=== PATIENT | female | born 1980 | race Caucasian/White ===

== ENCOUNTER 2016-10-24 08:52 | Emergency (ER) | payer OTHER ==
[2016-10-24] MEDS ORDERED: SODIUM CHLORIDE 0.9% 1,000 ML IV ONE (09:46)
[2016-10-24] MEDS ORDERED: POTASSIUM BICARB 25 MEQ TABLET PO STA (10:32)
[2016-10-24] MEDS ORDERED: DEXAMETHASONE 10 MG/ML VIAL IVP STA (10:35)
[2016-10-24] MEDS ORDERED: DEXAMETHASONE 10 MG/ML VIAL ONE (10:50)
[2016-10-24] MEDS ORDERED: POTASSIUM BICARB 25 MEQ TABLET PO ONE (10:50)
== END 2016-10-24 12:01 | disposition home or self-care (01) ==
DX: A69.20 Lyme disease, unspecified (principal); E86.0 Dehydration; R11.2 Nausea with vomiting, unspecified; M25.562 Pain in left knee; M25.561 Pain in right knee; M06.9 Rheumatoid arthritis, unspecified; M19.90 Unspecified osteoarthritis, unspecified site
CPT/HCPCS: 36415; 80053; 83690; 85025; 85651; 96374; 99283; 99284; A9270

== ENCOUNTER 2016-12-16 12:21 | Outpatient (CLI) | payer OTHER | END 2016-12-16 12:22 | disposition home or self-care (01) | DX: Z01.812 Encounter for preprocedural laboratory examination (principal); N87.9 Dysplasia of cervix uteri, unspecified ==

== ENCOUNTER 2016-12-18 06:13 | Day surgery (SDC) | payer OTHER ==
[2016-12-18] MEDS ORDERED: ceFAZolin 2 GM/50 ML 50 ML IV ONE (06:28)
[2016-12-18] MEDS ORDERED: LACTATED RINGERS 1,000 ML IV ONE ×2 (07:15→08:30)
[2016-12-18] MEDS ORDERED: PROPOFOL 200 MG/20 ML VIAL IVP ONE (08:15)
[2016-12-18] MEDS ORDERED: fentaNYL 100 MCG/2 ML VIAL IVP ONE (08:15)
[2016-12-18] MEDS ORDERED: GLYCOPYRROLATE 1 MG/5 ML VIAL IVP ONE (08:15)
[2016-12-18] MEDS ORDERED: KETOROLAC 30 MG/ML VIAL IVP ONE (08:15)
[2016-12-18] MEDS ORDERED: ACETAMINOPHEN 1,000 MG/100 ML VIAL IV ONE (08:15)
[2016-12-18] MEDS ORDERED: ROCURONIUM 50 MG/5 ML VIAL IVP ONE (08:15)
[2016-12-18] MEDS ORDERED: DEXAMETHASONE 4 MG/ML VIAL IVP ONE (08:15)
[2016-12-18] MEDS ORDERED: LIDOCAINE 2% 10 ML MDV SUBQ ONE (08:15)
[2016-12-18] MEDS ORDERED: SUCCINYLCHOLINE 200 MG/10 ML VIAL IVP ONE (08:15)
[2016-12-18] MEDS ORDERED: NEOSTIGMINE 1 MG/1 ML 10 ML MDV IVP ONE (08:15)
[2016-12-18] MEDS ORDERED: ONDANSETRON 4 MG/2 ML VIAL IVP ONE (08:15)
[2016-12-18] MEDS ORDERED: MIDAZOLAM 2 MG/2 ML VIAL IVP ONE (08:15)
[2016-12-18] MEDS ORDERED: BUPIVACAINE 0.5%-EPI 1:200000 PF 30 ML VIAL SUBQ ONE (08:31)
[2016-12-18] MEDS: fentaNYL 100 MCG/2 ML VIAL ONE ×4 (10:10→10:31)
[2016-12-18] MEDS ORDERED: oxyCODONE 5 MG TABLET ONE ×2 (11:17→15:09)
[2016-12-18] MEDS ORDERED: KETOROLAC 15 MG/ML VIAL ONE (15:08)
== END 2016-12-18 06:14 | disposition home or self-care (01) ==
PROC: 0TJB8ZZ Inspection of Bladder, Via Natural or Artificial Opening Endoscopic (ICD-10-PCS; 2016-12-18)
PROC: 0UT94ZZ Resection of Uterus, Percutaneous Endoscopic Approach (ICD-10-PCS; principal; 2016-12-18 07:30)
PROC: 0UTC4ZZ Resection of Cervix, Percutaneous Endoscopic Approach (ICD-10-PCS; 2016-12-18 07:30)
DX: N87.1 Moderate cervical dysplasia (principal); N72 Inflammatory disease of cervix uteri; N92.0 Excessive and frequent menstruation with regular cycle; E66.9 Obesity, unspecified; F32.9 Major depressive disorder, single episode, unspecified; M35.00 Sjogren syndrome, unspecified; M06.9 Rheumatoid arthritis, unspecified; Z68.37 Body mass index [BMI] 37.0-37.9, adult; Z80.3 Family history of malignant neoplasm of breast; Z90.49 Acquired absence of other specified parts of digestive tract; D25.1 Intramural leiomyoma of uterus; Z90.722 Acquired absence of ovaries, bilateral; Z90.79 Acquired absence of other genital organ(s); Z98.84 Bariatric surgery status; Z98.0 Intestinal bypass and anastomosis status; Z88.5 Allergy status to narcotic agent; F41.9 Anxiety disorder, unspecified
CPT/HCPCS: 52000; 58572; 86850; 86900; 86901; A9270; J0131; J0690; J7120

== ENCOUNTER 2017-08-05 18:10 | Emergency (ER) | payer OTHER ==
[2017-08-05 18:55] LABS: BILIRUBIN,URINE NEGATIVE (NEGATIVE)
[2017-08-05 19:00] LABS: UA w/ MICROSCOPIC CHARGE YES
[2017-08-05 19:01] LABS: HCG UR QUAL NEGATIVE
[2017-08-05 19:11] LABS: UR CULTURE IF IND NOT INDICATED
[2017-08-05] MEDS ORDERED: SODIUM CHLORIDE 0.9% 1,000 ML IV ONE (19:29)
[2017-08-05] MEDS ORDERED: HYDROmorphone 0.5 MG/0.5 ML SYRINGE IVP STA ×2 (19:29→20:20)
[2017-08-05] MEDS ORDERED: ONDANSETRON 4 MG/2 ML VIAL IVP STA (19:29)
--- NOTE | 2017-08-05 19:31 | ED Physician Documentation ---
PD HPI ABD PAIN - Stated complaint Stated Complaint: R SIDE PX - Chief complaint Chief Complaint: Abd Pain - History obtained from History obtained from: Patient - History of Present Illness Timing - onset: Other (36-year-old woman with history of gastric bypass and cholecystectomy who developed sudden onset right flank pain reminiscent of prior recurrent calcium oxalate renal colic at 3 PM today with nausea but no vomiting. She seems to have urinary hesitancy but no obvious hematuria. She has never needed any of her kidney stones intervened upon.) Review of Systems Constitutional: reports: Reviewed and negative Cardiac: reports: Reviewed and negative Respiratory: reports: Reviewed and negative GI: reports: Nausea. 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, Tubal ligation, Other HEENT: Tonsil/Adenoidectomy, Other - Present Medications Home Medications: Ambulatory Orders Medication Instructions Recorded Confirmed Sumatriptan Succinate [Imitrex] 50 mg PO DAILY PRN 06/23/14 08/05/17 Zolpidem Tartrate [Ambien] 10 mg PO QPM 06/05/15 08/05/17 Biotin 1 tab PO DAILY 12/16/16 08/05/17 Calcium Carbonate [Calcium] 1 tab PO DAILY 12/16/16 08/05/17 Cholecalciferol (Vitamin D3) 1 cap PO DAILY 12/16/16 08/05/17 [Vitamin D3] Folic Acid 1 mg PO DAILY 12/16/16 08/05/17 Multivitamin [Multiple Vitamins] 1 tab PO DAILY 12/16/16 12/16/16 Acetaminophen [Tylenol] 1,000 mg PO Q6H PRN 12/18/16 08/05/17 Ondansetron HCl [Zofran] 4 mg PO Q6H PRN #10 tablet 08/05/17 Oxycodone HCl/Acetaminophen 1 - 2 tab PO Q4H PRN #15 tablet 08/05/17 [Percocet 5-325 mg Tablet] Venlafaxine ER [Effexor ER] 75 mg PO DAILY 08/05/17 08/05/17 - Allergies Allergies/Adverse Reactions: Allergies Allergy/AdvReac Type Severity Reaction Status Date / Time morphine AdvReac Unknown Verified 08/05/17 19:21 - Social History Does the pt smoke?: No Smoking Status: Never smoker Does the pt drink ETOH?: No Does the pt have substance abuse?: No - Immunizations Immunizations are current?: Yes - POLST Patient has POLST: No PD ED PE NORMAL - Vitals Vital signs reviewed: Yes - General General: Alert and oriented X 3, No acute distress - Abdomen Abdomen: Soft, Non tender - Back Back: No CVA TTP, No spinal TTP - Extremities Extremities: No edema, No calf tenderness / cord - Neuro Neuro: Alert and oriented X 3, Normal speech Results - Vitals Vitals: Vital Signs - 24 hr 08/05/17 08/05/17 08/05/17 18:16 20:19 20:35 Temperature 36.7 C Heart Rate 82 76 79 Respiratory 18 16 14 Rate Blood Pressure 105/71 105/58 L 101/51 L O2 Saturation 100 100 99 Oxygen O2 Source Room air - Labs Labs: Laboratory Tests 08/05/17 08/05/17 08/05/17 18:43 19:35 19:35 WBC 12.6 H RBC 4.39 Hgb 12.6 Hct 38.2 MCV 87.2 MCH 28.8 MCHC 33.0 RDW 13.1 Plt Count 313 MPV 7.9 Neut # 6.6 Lymph # 4.7 [place] # 0.8 Eos # 0.4 Baso # 0.1 Absolute Nucleated RBC 0.00 Nucleated RBC % 0.0 Sodium 140 Potassium 4.1 Chloride 106 Carbon Dioxide 28 Anion Gap 6.0 BUN 18 Creatinine 0.7 Estimated GFR (MDRD) 95 Glucose 92 Calcium 9.3 Total Bilirubin 0.4 AST 29 ALT 30 Alkaline Phosphatase 71 Total Protein 6.8 Albumin 4.1 Globulin 2.7 Albumin/Globulin Ratio 1.5 Lipase 27 Urine Color YELLOW Urine Clarity CLEAR Urine pH 6.0 Ur Specific [place] 1.010 Urine Protein NEGATIVE Urine Glucose (UA) NEGATIVE Urine Ketones NEGATIVE Urine Occult Blood MODERATE H Urine Nitrite NEGATIVE Urine Bilirubin NEGATIVE Urine Urobilinogen 0.2 (NORMAL) Ur Leukocyte Esterase MODERATE H Urine RBC 0-5 Urine WBC 4-5 Ur Squamous Epith Cells MANY Squamous H Urine Bacteria Few Ur Microscopic Review INDICATED Urine Culture Comments NOT INDICATED Urine HCG, Qual NEGATIVE - Rads (name of study) Right retroperitoneal ultrasound Radiology: Prelim report reviewed (normal) PD MEDICAL DECISION MAKING - ED course ED course: 36-year-old woman with history of renal colic presents with stone like pain. Administered 2 doses of Dilaudid with relief. No evidence of hydronephrosis on ultrasound. CT saved because of frequent imaging in the past. Departure - Departure Disposition: 01 Home, Self Care Clinical Impression: Renal colic Condition: Good Record reviewed to determine appropriate education?: Yes Instructions: ED Stone Renal W Colic Prescriptions: Ondansetron HCl [Zofran] 4 mg PO Q6H PRN #10 tablet PRN Reason: Nausea / Vomiting Oxycodone HCl/Acetaminophen [Percocet 5-325 mg Tablet] 1 - 2 tab PO Q4H PRN #15 tablet PRN Reason: Pain Comments: Call your doctor to arrange a follow-up appointment, make the next available appointment. In the interim, return anytime if worse or if new symptoms develop. Do not drink or drive while taking narcotic pain medication. Note that many narcotic pain relievers also contain Tylenol/acetaminophen. Please ensure that your total dose of acetaminophen from all sources does not exceed 3 g (3000 mg) per day. You may get constipated while on this medication. Take a stool softener such as Colace twice a day while you are on it. Also add an glkc-vhn-[id number] laxative such as senna or MiraLAX on any day that you do not have a bowel movement. If you received a narcotic pain medication or sedative while in the emergency department, do not drive for the next 24 hours.
[2017-08-05 19:41] LABS: BASOPHILS # (AUTO) 0.1 10^3/uL (0.0-0.1); BASOPHILS % (AUTO) 0.8 %; EOSINOPHILS # (AUTO) 0.4 10^3/uL (0.0-0.7); EOSINOPHILS % (AUTO) 3.3 %; HCT - HEMATOCRIT 38.2 % (37.0-47.0); HGB - HEMOGLOBIN 12.6 g/dL (12.0-16.0); LYMPHOCYTES # (AUTO) 4.7 10^3/uL (1.5-3.5); LYMPHOCYTES % (AUTO) 37.2 %; MEAN CORPUSCULAR HEMOGLOBIN 28.8 pg (27.0-31.0); MEAN CORPUSCULAR VOLUME 87.2 fL (81.0-99.0); MEAN PLATELET VOLUME 7.9 fL (7.9-10.8); MONOCYTES # (AUTO) 0.8 10^3/uL (0.0-1.0); NEUTROPHILS # (AUTO) 6.6 10^3/uL (1.5-6.6); NEUTROPHILS % (AUTO) 52.7 %; RED BLOOD COUNT 4.39 10^6/uL (4.20-5.40); RED CELL DISTRIBUTION WIDTH 13.1 % (12.0-15.0); UNCORRECTED WHITE BLOOD COUNT 12.6 x10^3/uL; WHITE BLOOD COUNT 12.6 x10^3/uL (4.8-10.8)
[2017-08-05] MEDS ORDERED: HYDROmorphone 1 MG/ML SYRINGE ONE ×2 (19:42→20:29)
[2017-08-05] MEDS ORDERED: ONDANSETRON 4 MG/2 ML VIAL ONE (19:42)
[2017-08-05 19:54] LABS: ALBUMIN/GLOBULIN RATIO 1.5 (1.0-2.2); BILIRUBIN,TOTAL 0.4 mg/dL (0.2-1.0); CALCIUM 9.3 mg/dL (8.5-10.3); CREATININE 0.7 mg/dL (0.4-1.0); POTASSIUM 4.1 mmol/L (3.5-5.0); TOTAL PROTEIN 6.8 g/dL (6.7-8.2)
[2017-08-05 20:37] VITALS: BP 101/51
--- NOTE | 2017-08-05 20:39 | Ultrasound Preliminary Report ---
Exam: US RETROPERITONEAL LIMITED IMPRESSION: Normal right kidney. [facility] SITE ID: [id number]
--- NOTE | 2017-08-05 20:42 | Ultrasound Report ---
EXAM: RENAL ULTRASOUND, LIMITED EXAM DATE: 08/05/2017 07:54 PM. CLINICAL HISTORY: R flank pain. COMPARISON: CT [facility] dated 03/15/2016. TECHNIQUE: Real-time scanning was performed with static images obtained. FINDINGS: Right Kidney: 11.3 x 5.0 x 5.0 cm. Normal echotexture with no stones, contour-deforming masses, or hy dronephrosis. Other: None. IMPRESSION: Normal right kidney. [facility] Referring Provider Line: [phone] SITE ID: [id number]
[2017-08-05] MEDS ORDERED: oxyCODONE/ACET 5/325 Prepack 4 PO STA (20:55)
[2017-08-05] MEDS ORDERED: ONDANSETRON ODT 4 MG Prepack 2 TL STA (20:55)
[2017-08-05] MEDS ORDERED: ONDANSETRON ODT 4 MG Prepack 2 TL ONE (21:02)
[2017-08-05] MEDS ORDERED: oxyCODONE/ACET 5/325 Prepack 4 PO ONE (21:02)
== END 2017-08-05 21:01 | disposition home or self-care (01) ==
LOC: ED 18:10
DX: N23 Unspecified renal colic (principal); Z98.84 Bariatric surgery status
CPT/HCPCS: 36415; 76775; 80053; 81001; 81025; 83690; 85025; 96361; 96374; 96375; 96376; 99284; J1170; 81003; 87086

== ENCOUNTER 2017-11-03 10:14 | Emergency (ER) | payer OTHER ==
[2017-11-03] MEDS ORDERED: SODIUM CHLORIDE 0.9% 1,000 ML IV ONE (12:32)
[2017-11-03] MEDS ORDERED: METOCLOPRAMIDE 10 MG/2 ML VIAL IVP STA (12:32)
[2017-11-03] MEDS ORDERED: KETOROLAC 60 MG/2 ML VIAL IVP STA (12:32)
[2017-11-03] MEDS ORDERED: diazePAM INJ 5 MG/ML SYRINGE IVP STA (12:32)
--- NOTE | 2017-11-03 12:34 | ED Physician Documentation ---
History of Present Illness - Stated complaint Stated Complaint: BACK/NECK PX/MIGRAINE - Chief complaint Chief Complaint: Back Pain - History obtained from History obtained from: Patient - History of Present Illness Timing: Other (36-year-old woman with history of gastric bypass surgery, migraine headaches, hysterectomy. She developed back pain about 4 days ago which is not uncommon for her but it was worse and more diffuse than normal and over the last day has radiated up into the neck and given her headache with nausea and light sensitivity similar to prior migraines. 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, Tubal ligation, Hysterectomy, Other HEENT: Tonsil/Adenoidectomy, Other - Present Medications Home Medications: Ambulatory Orders Medication Instructions Recorded Confirmed Sumatriptan Succinate [Imitrex] 50 mg PO DAILY PRN 06/23/14 11/03/17 Zolpidem Tartrate [Ambien] 10 mg PO QPM 06/05/15 11/03/17 Biotin 1 tab PO DAILY 12/16/16 11/03/17 Calcium Carbonate [Calcium] 1 tab PO DAILY 12/16/16 11/03/17 Cholecalciferol (Vitamin D3) 1 cap PO DAILY 12/16/16 11/03/17 [Vitamin D3] Folic Acid 1 mg PO DAILY 12/16/16 11/03/17 Multivitamin [Multiple Vitamins] 1 tab PO DAILY 12/16/16 11/03/17 Acetaminophen [Tylenol] 1,000 mg PO Q6H PRN 12/18/16 11/03/17 Venlafaxine ER [Effexor ER] 75 mg PO DAILY 08/05/17 11/03/17 HYDROcod/ACETAM 5/325 [[place] 5/325] 1 - 2 ea PO Q6H PRN #10 tablet 11/03/17 buPROPion [Wellbutrin Xl] 150 mg PO DAILY 11/03/17 11/03/17 - Allergies Allergies/Adverse Reactions: Allergies Allergy/AdvReac Type Severity Reaction Status Date / Time morphine AdvReac Unknown Verified 11/03/17 11:38 - Social History Does the pt smoke?: No Smoking Status: Never smoker Does the pt drink ETOH?: No Does the pt have substance abuse?: No - Immunizations Immunizations are current?: Yes - POLST Patient has POLST: No PD ED PE NORMAL - Vitals Vital signs reviewed: Yes - General General: Alert and oriented X 3, Other (Photophobic) - HEENT HEENT: PERRL, EOMI - Neck Neck: Other (Her neck is stiff, but not in a meningitic pattern, she has muscular tenderness of both sternocleidomastoids.) - Cardiac Cardiac: RRR, No murmur - Respiratory Respiratory: No respiratory distress, Clear bilaterally - Abdomen Abdomen: Non tender - Back Back: Other (Palpable spasm which is tender of the parathoracic muscles bilaterally which reproduces her pain.) - Extremities Extremities: No edema, No calf tenderness / cord - Neuro Neuro: Alert and oriented X 3, Normal speech Results - Vitals Vitals: Vital Signs - 24 hr 11/03/17 11/03/17 11/03/17 10:20 11:24 12:38 Temperature 36.9 C 36.6 C Heart Rate 91 74 70 Respiratory 14 16 16 Rate Blood Pressure 136/90 H 108/66 121/68 O2 Saturation 98 99 100 11/03/17 13:29 Temperature Heart Rate 93 Respiratory 15 Rate Blood Pressure 109/67 O2 Saturation 100 Oxygen O2 Source Room air PD MEDICAL DECISION MAKING - ED course ED course: She presents with a tension headache related to back pain, really inconsistent with a vascular or other serious etiology. After treatment with IV fluids, Toradol, Reglan she was doing much better and requested discharge. Departure - Departure Disposition: 01 Home, Self Care Clinical Impression: Headache Qualifiers: Headache type: tension-type Headache chronicity pattern: acute headache Intractability: not intractable Qualified Code(s): G44.209 - Tension-type headache, unspecified, not intractable Back pain Qualifiers: Back pain location: thoracic back pain Chronicity: acute Back pain laterality: bilateral Qualified Code(s): M54.6 - Pain in thoracic spine Condition: Good Record reviewed to determine appropriate education?: Yes Instructions: ED Headache Migraine Prescriptions: HYDROcod/ACETAM 5/325 [[place] 5/325] 1 - 2 ea PO Q6H PRN #10 tablet PRN Reason: Pain Comments: Call your doctor to arrange a follow-up appointment, make the next available appointment. In the interim, return anytime if worse or if new symptoms develop.
[2017-11-03 13:30] VITALS: BP 109/67
== END 2017-11-03 14:13 | disposition home or self-care (01) ==
LOC: ED 10:14
DX: G44.209 Tension-type headache, unspecified, not intractable (principal); M54.6 Pain in thoracic spine; Z98.84 Bariatric surgery status
CPT/HCPCS: 96374; 99283

== ENCOUNTER 2018-11-10 12:49 | Emergency (ER) | payer OTHER ==
[2018-11-10 14:44] LABS: BASOPHILS # (AUTO) 0.1 10^3/uL (0.0-0.1); BASOPHILS % (AUTO) 0.8 %; EOSINOPHILS # (AUTO) 0.3 10^3/uL (0.0-0.7); EOSINOPHILS % (AUTO) 2.4 %; LYMPHOCYTES # (AUTO) 3.4 10^3/uL (1.5-3.5); LYMPHOCYTES % (AUTO) 26.2 %; MEAN CORPUSCULAR HEMOGLOBIN 29.3 pg (27.0-31.0); MEAN CORPUSCULAR HGB CONC 33.9 g/dL (32.0-36.0); MEAN CORPUSCULAR VOLUME 86.3 fL (81.0-99.0); MEAN PLATELET VOLUME 7.5 fL (7.9-10.8); MONOCYTES # (AUTO) 0.7 10^3/uL (0.0-1.0); MONOCYTES % (AUTO) 5.5 %; NEUTROPHILS # (AUTO) 8.5 10^3/uL (1.5-6.6); NEUTROPHILS % (AUTO) 65.1 %; PLT - PLATELET COUNT 390 10^3/uL (130-450); RED BLOOD COUNT 4.77 10^6/uL (4.20-5.40)
[2018-11-10 14:57] LABS: ALBUMIN/GLOBULIN RATIO 1.2 (1.0-2.2); BILIRUBIN,TOTAL 0.5 mg/dL (0.2-1.0); CALCIUM 9.4 mg/dL (8.5-10.3); CREATININE 0.7 mg/dL (0.4-1.0); TOTAL PROTEIN 7.4 g/dL (6.7-8.2)
[2018-11-10] MEDS ORDERED: LIDOCAINE VISCOUS 2% 15 ML UDC MM STA (15:08)
[2018-11-10] MEDS ORDERED: MAG HYDROX/AL HYDROX/SIMETH 30 ML UDC PO STA (15:09)
--- NOTE | 2018-11-10 15:11 | ED Physician Documentation ---
PD HPI ABD PAIN - Stated complaint Stated Complaint: ABD PX - Chief complaint Chief Complaint: Abd Pain - History obtained from History obtained from: Patient, Family - History of Present Illness Timing - onset: How many days ago (3) Timing - duration: Days (3) Timing - details: Abrupt onset, Still present Quality: Sharp, Pain Location: Epigastric Improved by: Laying still Worsened by: Eating, Moving, Position, Palpation Associated symptoms: Nausea. No: Vomiting, Hematemesis, Diarrhea, Constipation, Melena Similar symptoms before: No diagnosis Recently seen: Not recently seen - Additional information Additional information: 37-year-old female sitting in her couch when she developed epigastric pain after drinking some water. She has history of gastric bypass about 3 years ago and she has not had any significant complication with this. She has had her gallbladder out she has had her appendix out and she denies overeating. Review of Systems Constitutional: denies: Fever, Chills Eyes: denies: Decreased vision Ears: denies: Ear pain Nose: denies: Congestion Throat: denies: Sore throat Cardiac: denies: Chest pain / pressure, Palpitations Respiratory: denies: Dyspnea, Cough GI: reports: Abdominal Pain, Nausea. 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, Tubal 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, Hysterectomy, Other HEENT: Tonsil/Adenoidectomy, Other - Present Medications Home Medications: Ambulatory Orders Medication Instructions Recorded Confirmed Zolpidem Tartrate [Ambien] 10 mg PO QPM 06/05/15 11/10/18 Biotin 1 tab PO DAILY 12/16/16 11/10/18 Calcium Carbonate [Calcium] 1 tab PO DAILY 12/16/16 11/10/18 Cholecalciferol (Vitamin D3) 1 cap PO DAILY 12/16/16 11/10/18 [Vitamin D3] Folic Acid 1 mg PO DAILY 12/16/16 11/10/18 Multivitamin [Multiple Vitamins] 1 tab PO DAILY 12/16/16 11/10/18 Acetaminophen [Tylenol] 1,000 mg PO Q6H PRN 12/18/16 11/10/18 Venlafaxine ER [Effexor ER] 75 mg PO DAILY 08/05/17 11/10/18 buPROPion [Wellbutrin Xl] 150 mg PO DAILY 11/03/17 11/10/18 Eletriptan HBr [Relpax] PRN 11/10/18 Sucralfate [Carafate] 1 gm PO ACHS #40 tablet 11/10/18 Zonisamide 25 mg PO TID 11/10/18 11/10/18 - Allergies Allergies/Adverse Reactions: Allergies Allergy/AdvReac Type Severity Reaction Status Date / Time morphine AdvReac Unknown Verified 11/10/18 13:21 - Social History Does the pt smoke?: No Smoking Status: Never smoker Does the pt drink ETOH?: No Does the pt have substance abuse?: No - Immunizations Immunizations are current?: Yes - POLST Patient has POLST: No PD ED PE NORMAL - Vitals Vital signs reviewed: Yes (normal) - General General: Alert and oriented X 3, No acute distress, Well developed/nourished - HEENT HEENT: Atraumatic, PERRL, EOMI - Neck Neck: Supple, no meningeal sign, No bony TTP - Cardiac Cardiac: RRR, No murmur - Respiratory Respiratory: No respiratory distress, Clear bilaterally - Abdomen Abdomen: Soft, Other (epigastric tenderness is obvious and associated with some garding. 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, No motor deficit, No sensory deficit, Normal speech Eye Opening: Spontaneous Motor: Obeys Commands Verbal: Oriented GCS Score: 15 - Psych Psych: Normal mood, Normal affect Results - Vitals Vitals: Vital Signs - 24 hr 11/10/18 11/10/18 13:19 15:47 Temperature 36.5 C Heart Rate 89 79 Respiratory 16 18 Rate Blood Pressure 118/75 108/69 O2 Saturation 98 100 Oxygen O2 Source Room air - Labs Labs: Laboratory Tests 11/10/18 11/10/18 11/10/18 14:40 14:40 15:17 WBC 13.0 H RBC 4.77 Hgb 14.0 Hct 41.1 MCV 86.3 MCH 29.3 MCHC 33.9 RDW 13.0 Plt Count 390 MPV 7.5 L Neut # (Auto) 8.5 H Lymph # (Auto) 3.4 [place] # (Auto) 0.7 Eos # (Auto) 0.3 Baso # (Auto) 0.1 Absolute Nucleated RBC 0.00 Nucleated RBC % 0.0 Sodium 138 Potassium 3.9 Chloride 103 Carbon Dioxide 27 Anion Gap 8.0 BUN 13 Creatinine 0.7 Estimated GFR (MDRD) 95 Glucose 97 Calcium 9.4 Total Bilirubin 0.5 AST 19 ALT 20 Alkaline Phosphatase 82 Total Protein 7.4 Albumin 4.0 Globulin 3.4 Albumin/Globulin Ratio 1.2 Lipase 30 Urine Color YELLOW Urine Clarity CLEAR Urine pH 5.5 Ur Specific [place] >=1.030 H Urine Protein NEGATIVE Urine Glucose (UA) NEGATIVE Urine Ketones NEGATIVE Urine Occult Blood NEGATIVE Urine Nitrite NEGATIVE Urine Bilirubin NEGATIVE Urine Urobilinogen 0.2 (NORMAL) Ur Leukocyte Esterase NEGATIVE Ur Microscopic Review NOT INDICATED Urine Culture Comments NOT INDICATED Urine HCG, Qual 11/10/18 15:17 WBC RBC Hgb Hct MCV MCH MCHC RDW Plt Count MPV Neut # (Auto) Lymph # (Auto) [place] # (Auto) Eos # (Auto) Baso # (Auto) Absolute Nucleated RBC Nucleated RBC % Sodium Potassium Chloride Carbon Dioxide Anion Gap BUN Creatinine Estimated GFR (MDRD) Glucose Calcium Total Bilirubin AST ALT Alkaline Phosphatase Total Protein Albumin Globulin Albumin/Globulin Ratio Lipase Urine Color Urine Clarity Urine pH Ur Specific [place] >=1.030 H Urine Protein Urine Glucose (UA) Urine Ketones Urine Occult Blood Urine Nitrite Urine Bilirubin Urine Urobilinogen Ur Leukocyte Esterase Ur Microscopic Review Urine Culture Comments Urine HCG, Qual NEGATIVE Procedures - IVC sono (time) 1540 Bedside IVC sono: IVC measures (cm) (0.87), IVC collapsed c insp (cm) (complete), Dehydration (est 2 liter deficit) PD MEDICAL DECISION MAKING - ED course Complexity details: reviewed old records, reviewed results, re-evaluated patient, considered differential, d/w patient, d/w family ED course: 37-year-old female 3 years status post gastric bypass has developed abdominal pain and has not been able to hold down fluids for the past 3 days. She is administered viscous lidocaine Mylanta with temporary relief of her pain. She is administered intravenous saline Protonix and Carafate. Departure - Departure Disposition: 01 Home, Self Care Clinical Impression: Dehydration Gastritis Qualifiers: Gastritis type: unspecified gastritis Chronicity: acute Gastritis bleeding: without bleeding Qualified Code(s): K29.00 - Acute gastritis without bleeding Condition: Stable Instructions: ED Dehydration, ED PUD Vs Gastritis Follow-Up: JAIME Henderson [Provider Group] Prescriptions: Sucralfate [Carafate] 1 gm PO ACHS #40 tablet Comments: Today it appears the pain you are having her abdomen is from your stomach or duodenum and my recommendation is you begin some medication to reduce the acid in your stomach and you take the Carafate as prescribed before meals and at bedtime.
[2018-11-10 15:31] LABS: BILIRUBIN,URINE NEGATIVE (NEGATIVE); GLUCOSE, URINE (UA) NEGATIVE (NEGATIVE); KETONES,URINE (UA) NEGATIVE (NEGATIVE); LEUKOCYTE ESTERASE, URINE NEGATIVE (NEGATIVE); NITRITE,URINE NEGATIVE (NEGATIVE); OCCULT BLOOD,URINE NEGATIVE (NEGATIVE); PH,URINE 5.5 PH (5.0-7.5); PROTEIN,URINE NEGATIVE (NEGATIVE); UROBILINOGEN,URINE 0.2 (NORMAL) E.U./dL (NORMAL)
[2018-11-10 15:34] LABS: CLARITY,URINE CLEAR (CLEAR)
[2018-11-10 15:35] LABS: HCG UR QUAL NEGATIVE
[2018-11-10] MEDS ORDERED: SODIUM CHLORIDE 0.9% 1,000 ML IV ONE ×2 (15:45→16:31)
[2018-11-10 15:47] VITALS: BP 108/69
[2018-11-10] MEDS ORDERED: PANTOPRAZOLE 40 MG VIAL IVP STA (15:47)
[2018-11-10] MEDS ORDERED: SUCRALFATE 1 GM/10 ML UDC PO STA (15:47)
== END 2018-11-10 17:50 | disposition home or self-care (01) ==
LOC: ED 12:49
DX: K29.00 Acute gastritis without bleeding (principal); E86.0 Dehydration; Z98.84 Bariatric surgery status
CPT/HCPCS: 36415; 80053; 81003; 81025; 83690; 85025; 96361; 96374; 99283; A9270; 81001; 87086

== ENCOUNTER 2019-12-31 16:34 | Outpatient (CLI) | payer OTHER | END 2019-12-31 16:35 | disposition home or self-care (01) | LOC: COV 16:34 | PROVIDERS: ATTEND Family Medicine | DX: R05 Cough (principal); R50.9 Fever, unspecified | CPT/HCPCS: 81599 ==

== ENCOUNTER 2021-02-16 14:54 | Emergency (ER) | payer OTHER ==
--- OUTSIDE RECORDS SUMMARY | 2021-02-16 14:57 | EXTERNAL MEDICAL SUMMARY RPT | Continuity of Care Document ---
:1980 Demographics Phone Unavailable Preferred Language Mosotho Marital Status Unknown Mosque Affiliation Unknown Race Unknown Ethnic Group Unknown Author Organization [place] Address [address] [phone] Phone Care Team Providers Name Role Phone Bambi Montez Unavailable Unavailable Medications date description facility 20210101 24 HR venlafaxine 75 MG Extended Releas e Capsule [facility] 20201122 Aspirin 81 MG Enteric Coated Tablet Is [facility] Procedures date description facility 20201122 [facility] Vital Signs date measurement value source 20201122 weight_standard 86.18 lb [id number] weight_metric 39.09 kg 20201122 temperature_standard 98.6 F 20201122 temperature_metric 37 C [id number] respiration_rate 15 /min [id number] height_standard 64 in 20201122 height_metric 162.56 cm [id number] heart_rate 82 /min 20201122 BP_systolic 137 mm[Hg] 82701591 BP_diastolic 81 mm[Hg] 26133977 BMI 32.5 kg/m2
--- OUTSIDE RECORDS SUMMARY | 2021-02-16 15:05 | EXTERNAL MEDICAL SUMMARY RPT | Continuity of Care Document ---
:1980 Demographics Phone Unavailable Preferred Language [place] Marital Status Unknown Adventism Affiliation Unknown Race Unknown Ethnic Group Unknown Author Organization [place] Address [address] [phone] Phone Care Team Providers Name Role Phone Tc Unavailable Unavailable Medications date description facility 20210101 24 HR venlafaxine 75 MG Extended Releas e Capsule [facility] 20201122 Aspirin 81 MG Enteric Coated Tablet Is [facility] Procedures date description facility 20201122 General [facility] [place] Vital Signs date measurement value source 20201122 weight_standard 86.18 lb [id number] weight_metric 39.09 kg 20201122 temperature_standard 98.6 F [id number] temperature_metric 37 C [id number] respiration_rate 15 /min [id number] height_standard 64 in 81997496 height_metric 162.56 cm 49775526 heart_rate 82 /min 59007478 BP_systolic 137 mm[Hg] 54329074 BP_diastolic 81 mm[Hg] 93894460 BMI 32.5 kg/m2
[2021-02-16 15:14] VITALS: BP 129/86
--- NOTE | 2021-02-16 15:43 | ED Physician Documentation ---
History of Present Illness - Stated complaint Stated Complaint: LT LEG PX/SWELLING - Chief complaint Chief Complaint: Ext Problem - Additonal information Additional information: 40-year-old female presents the emergency department for evaluation of left leg swelling that she feels is new compared to baseline. 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 Currently on Eliquis 5 mg twice daily. Reports compliance. Due to recurrent DVT in the left leg she was with an IVC filter however that was removed a few years ago. Patient denies chest pain or shortness of air. Denies that she has ever received pulmonary embolus associated with her leg blood clots. Patient's office clerk is Dr. Allen through [facility]. Patient had similar symptoms in November 2020. She was seen at [facility] and has ultrasound results with her that show a partially occlusive thrombus that was seen in the left common femoral vein. Review of Systems Constitutional: denies: Fever, Chills Eyes: reports: Reviewed and negative Ears: reports: Reviewed and negative Nose: reports: Rhinorrhea / runny nose Throat: reports: Reviewed and negative Cardiac: reports: Other (left groin pain). 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, Tubal ligation, Hysterectomy, Other HEENT: Tonsil/Adenoidectomy, Other - Present Medications Home Medications: Ambulatory Orders Medication Instructions Recorded Confirmed Zolpidem Tartrate [Ambien] 10 mg PO QPM 06/05/15 02/16/21 Cholecalciferol (Vitamin D3) 1 cap PO DAILY 12/16/16 02/16/21 [Vitamin D3] Multivitamin [Multiple Vitamins] 1 tab PO DAILY 12/16/16 02/16/21 Acetaminophen [Tylenol] 1,000 mg PO Q6H PRN 12/18/16 02/16/21 Venlafaxine ER [Effexor ER] 75 mg PO DAILY 08/05/17 02/16/21 Eletriptan HBr [Relpax] 1 tab PO DAILY PRN 11/10/18 02/16/21 Zonisamide 25 mg PO TID 11/10/18 02/16/21 Enoxaparin [Lovenox] 100 mg SQ BID 30 Days #60 02/16/21 HYDROcod/ACETAM 5/325 [[place] 5/325] 1 tab PO BID PRN #10 tablet 02/16/21 - Allergies Allergies/Adverse Reactions: Allergies Allergy/AdvReac Type Severity Reaction Status Date / Time morphine AdvReac Unknown Verified 02/16/21 15:10 - Social History Does the pt smoke?: No Smoking Status: Never smoker Does the pt drink ETOH?: No Does the pt have substance abuse?: No - Immunizations Immunizations are current?: Yes - POLST Patient has POLST: No PD ED PE EXPANDED - General General: Alert, No acute distress, Well developed/nourished - HEENT HEENT: PERRL - Cardiac Cardiac: Regular Rate, Radial strong equal, Pedal strong equal, Cap refill < 2 sec - Respiratory Respiratory: Clear to ausultation elvia. No: Distress, Labored - Abdomen Abdomen: Normal Bowel sounds. No: Tender to palpation - Extremities Extremities: Normal, Pedal Pulses Present. No: Deformity, Tenderness, Limited ROM, Right calf TTP/cord, Left calf TTP/cord (No swelling of the left lower extremity noted. Distal perfusion and pulses present. Patient reports tightness in the left groin. No swelling noted there. 2+ femoral arterial pulse. Full range of motion of the left leg through the hip.) Results - Vitals Vitals: Vital Signs - 24 hr 02/16/21 02/16/21 15:10 16:10 Temperature 36.8 C 36.3 C L Heart Rate 100 87 Respiratory 16 16 Rate Blood Pressure 129/86 H 129/86 H O2 Saturation 100 100 Oxygen O2 Source Room air - Labs Labs: Laboratory Tests 02/16/21 02/16/21 15:51 15:51 WBC 13.0 H RBC 4.73 Hgb 12.1 Hct 37.5 MCV 79.3 L MCH 25.6 L MCHC 32.3 RDW 14.7 Plt Count 389 MPV 9.5 Neut # (Auto) 7.4 H Lymph # (Auto) 4.2 H [place] # (Auto) 1.0 Eos # (Auto) 0.3 Baso # (Auto) 0.1 Absolute Nucleated RBC 0.00 Nucleated RBC % 0.0 Sodium 137 Potassium 3.5 Chloride 103 Carbon Dioxide 25 Anion Gap 9.0 BUN 12 Creatinine 0.7 Estimated GFR (MDRD) 93 Glucose 98 Calcium 9.1 Total Bilirubin 0.5 AST 14 ALT 11 Alkaline Phosphatase 82 Total Protein 6.7 Albumin 4.2 Globulin 2.5 Albumin/Globulin Ratio 1.7 Lipase 33 - Rads (name of study) US DVT left leg Radiology: Final report received (Nonocclusive left common femoral vein DVT.) PD MEDICAL DECISION MAKING - ED course Complexity details: reviewed old records, reviewed results, re-evaluated patient, considered differential, d/w patient, d/w marketing operations consultant (Dr. Mago Aguilera office clerk with [facility]) ED course: 40-year-old female who has a history of factor V Leyden deficiency as well as protein S deficiency presents to the emergency department for acute left groin pain that began last night. 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 An ultrasound completed at [facility] in November 2020 showed a partially occlusive left common femoral vein thrombus. Today a repeat ultrasound of this leg again shows a partially occlusive left common femoral vein thrombus. Given her clotting disorder I did consult with Dr. Aguilera who is on-call for her office clerk Dr. Allen. After extensive discussion the decision is made to transition her from Eliquis twice daily to Lovenox 1 mg/kg subcu twice daily. Patient is to stop taking her Eliquis now. Patient did have injection teaching completed by the bedside RN. She has previously injected methotrexate and feels comfortable with this procedure. Dr. Allen's office will call to schedule patient for follow-up within the next week to 2. Patient is advised that she should have a repeat ultrasound of this leg within 2 weeks to ensure resolution or no extension of this thrombus. Emergent return precautions were discussed for increased leg pain, leg swelling any chest pain or shortness of air. Departure - Departure Disposition: 01 Home, Self Care Clinical Impression: Factor V Leiden, Protein S deficiency Left leg DVT Qualifiers: Affected thrombotic vein of extremity: femoral Chronicity: unspecified Qualified Code(s): I82.412 - Acute embolism and thrombosis of left femoral vein Condition: Stable Record reviewed to determine appropriate education?: Yes Prescriptions: Enoxaparin [Lovenox] 100 mg SQ BID 30 Days #60 HYDROcod/ACETAM 5/325 [[place] 5/325] 1 tab PO BID PRN #10 tablet PRN Reason: Pain Comments: Janelle soto the ultrasound today does show a partially occlusive thrombus again in your left common femoral vein. It is not clear if this is a new vein thrombus from November or simply the same 1 seen at that time. However after discussion with your hematology group they feel that it would benefit you to transition from Eliquis twice daily to Lovenox/enoxaparin sodium twice daily. Stop taking your Eliquis. Your first dose of Lovenox was injected today in the emergency department. If for any reason you are not able to fill the Lovenox prescription tomorrow or administer the doses at home yourself please return immediately to the ER to receive the doses here. Your office clerk office/Dr. Allen should be calling you to schedule follow-up in the next 1 to 2 weeks. If at any point you have increased left leg pain, increased swelling, develop any chest pain or shortness of air please come immediately to the emergency department for reevaluation. I have also prescribed a limited amount of hydrocodone for pain. Do not drive if taking this it does legally intoxicated you.
[2021-02-16 15:58] LABS: BASOPHILS # (AUTO) 0.1 10^3/uL (0.0-0.1); BASOPHILS % (AUTO) 0.7 %; EOSINOPHILS # (AUTO) 0.3 10^3/uL (0.0-0.7); EOSINOPHILS % (AUTO) 2.1 %; HCT - HEMATOCRIT 37.5 % (37.0-47.0); HGB - HEMOGLOBIN 12.1 g/dL (12.0-16.0); LYMPHOCYTES # (AUTO) 4.2 10^3/uL (1.5-3.5); LYMPHOCYTES % (AUTO) 31.9 %; MEAN CORPUSCULAR HEMOGLOBIN 25.6 pg (27.0-31.0); MEAN CORPUSCULAR HGB CONC 32.3 g/dL (32.0-36.0); MEAN CORPUSCULAR VOLUME 79.3 fL (81.0-99.0); MEAN PLATELET VOLUME 9.5 fL (7.9-10.8); NEUTROPHILS # (AUTO) 7.4 10^3/uL (1.5-6.6); PLT - PLATELET COUNT 389 10^3/uL (130-450); RED BLOOD COUNT 4.73 10^6/uL (4.20-5.40); RED CELL DISTRIBUTION WIDTH 14.7 % (12.0-15.0)
[2021-02-16 16:08] LABS: ALBUMIN 4.2 g/dL (3.2-5.5); ALBUMIN/GLOBULIN RATIO 1.7 (1.0-2.2); BILIRUBIN,TOTAL 0.5 mg/dL (0.2-1.0); CALCIUM 9.1 mg/dL (8.5-10.3); CREATININE 0.7 mg/dL (0.4-1.0); POTASSIUM 3.5 mmol/L (3.5-5.0); TOTAL PROTEIN 6.7 g/dL (6.7-8.2)
[2021-02-16] MEDS ORDERED: HYDROcod/ACETAM 5/325 MG TABLET PO STA (16:30)
--- NOTE | 2021-02-16 17:44 | Ultrasound Report ---
PROCEDURE: Duplex Ext Veins Left INDICATIONS: hx of DVT. left leg feel tight TECHNIQUE: Real-time imaging, as well as color and pulse Doppler interrogation, were performed of the lower extr emity deep veins from the inguinal ligament to the popliteal fossa. COMPARISON: None. FINDINGS: Nonocclusive DVT within the left common femoral vein of uncertain acuity. IMPRESSION: Nonocclusive left common femoral vein DVT, of uncertain acuity. Reviewed by: Coretta Keane MD on 02/16/2021 5:42 PM PDT Approved by: Coretta Keane MD on 02/16/2021 5:42 PM PDT Station ID: [id number]
[2021-02-16] MEDS ORDERED: ENOXAPARIN 100 MG/ML SYRINGE SUBQ STA (18:12)
== END 2021-02-16 18:51 | disposition home or self-care (01) ==
LOC: ED 14:54
DX: I82.412 Acute embolism and thrombosis of left femoral vein (principal); D68.51 Activated protein C resistance; D68.59 Other primary thrombophilia; Z79.01 Long term (current) use of anticoagulants
CPT/HCPCS: 36415; 80053; 83690; 85025; 93971; 96372; 99284; A9270; J1650

== ENCOUNTER 2021-03-05 21:40 | Emergency (ER) | payer OTHER ==
--- OUTSIDE RECORDS SUMMARY | 2021-03-05 21:44 | EXTERNAL MEDICAL SUMMARY RPT | Continuity of Care Document ---
:1980 Demographics Phone Unavailable Preferred Language Unknown Marital Status Unknown Methodist Affiliation Unknown Race Unknown Ethnic Group Unknown Author Organization [place] Address [address] [place] [address] Phone Care Team Providers Name Role Phone Tc Unavailable Unavailable Medications date description facility [id number] 24 HR venlafaxine 75 MG Extended [facility]
--- OUTSIDE RECORDS SUMMARY | 2021-03-05 21:46 | EXTERNAL MEDICAL SUMMARY RPT | Continuity of Care Document ---
:1980 Demographics Phone Unavailable Preferred Language Unknown Marital Status Unknown Shinto Affiliation Unknown Race Unknown Ethnic Group Unknown Author Organization [place] Address [address] [place] [address] Phone Care Team Providers Name Role Phone Tc Unavailable Unavailable Medications date description facility 20210101 24 HR venlafaxine [address] [facility]
--- NOTE | 2021-03-05 21:54 | ED Physician Documentation ---
PD HPI ALTERED MENTAL STATUS - Stated complaint Stated Complaint: HALLUCINATIONS - Chief complaint Chief Complaint: MHE - History obtained from History obtained from: Patient - History of Present Illness Timing - onset: Last night Timing - details: Abrupt onset Quality / character: Hallucinating Associated symptoms: No: Fever, Headache, Stiff neck, Dyspnea, Cough, NVD, Urinary sx, General weakness, Focal weakness Contributing factors: Anticoagulated, Recent med change Basline status: Alert and oriented X 3, Ambulatory, Independent Similar symptoms before: Has not had sx before Recently seen: Emergency Dept - Additional information Additional information: c/o hallucinations since last night (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 She denies h/o similar symptoms. She has clotting disorder (factor V leyden, factor S) and has recurrent LLE DVT for which she had been on eliquis. She was evaluated in this ED 02/16/21 (3 weeks ago) and US demonstrated ongoing LLE nonocclusive thrombus and treating ED provider discussed the case with patient's covering parking supervisor, and based on this conversation, the patient was instructed to stop her eliquis and take lovenox BID until reassessment in outpatient setting within 1-2 weeks. Review of Systems Constitutional: reports: Reviewed and negative Eyes: reports: Reviewed and negative Cardiac: reports: Reviewed and negative Respiratory: reports: Reviewed and negative GI: reports: Reviewed and negative : denies: Dysuria, Frequency, Unable to Void, Incontinent Skin: reports: Reviewed and negative Musculoskeletal: reports: Reviewed and negative Neurologic: denies: Generalized weakness, Focal weakness, Numbness, Headache Psychiatric: reports: Hallucinations, Insomnia. 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, Tubal ligation, Hysterectomy, Other HEENT: Tonsil/Adenoidectomy, Other - Present Medications Home Medications: Ambulatory Orders Medication Instructions Recorded Confirmed Zolpidem Tartrate [Ambien] 10 mg PO QPM 06/05/15 02/16/21 Multivitamin [Multiple Vitamins] 1 tab PO DAILY 12/16/16 02/16/21 Acetaminophen [Tylenol] 1,000 mg PO Q6H PRN 12/18/16 02/16/21 Eletriptan HBr [Relpax] 1 tab PO DAILY PRN 11/10/18 02/16/21 Zonisamide 25 mg PO TID 11/10/18 02/16/21 Enoxaparin [Lovenox] 100 mg SQ BID 30 Days #60 02/16/21 HYDROcod/ACETAM 5/325 [[place] 5/325] 1 tab PO BID PRN #10 tablet 02/16/21 LORazepam [Ativan] 1 mg PO PRN PRN 03/06/21 03/06/21 Scopolamine 1 patch TOP 03/06/21 Spironolactone [Aldactone] 50 mg PO BID 03/06/21 03/06/21 - Allergies Allergies/Adverse Reactions: Allergies Allergy/AdvReac Type Severity Reaction Status Date / Time morphine AdvReac Unknown Verified 02/16/21 15:10 - Social History Does the pt smoke?: No Smoking Status: Never smoker Does the pt drink ETOH?: No Does the pt have substance abuse?: No - Immunizations Immunizations are current?: Yes - POLST Patient has POLST: No PD ED PE NORMAL - Vitals Vital signs reviewed: Yes - General General: Alert and oriented X 3, No acute distress, Well developed/nourished - HEENT HEENT: PERRL, EOMI, Other (symmetric facies;facial LTS intact and equal bilaterally ) - Neck Neck: Supple, no meningeal sign - Cardiac Cardiac: RRR - Respiratory Respiratory: No respiratory distress, Clear bilaterally - Abdomen Abdomen: Soft, Non tender - Derm Derm: Normal color, Warm and dry - Extremities Extremities: No edema - Neuro Neuro: Alert and oriented X 3, spool hauler 2-12 intact, No motor deficit, No sensory deficit, Normal speech, Other (normal bilateral [id number], heel/martin) Eye Opening: Spontaneous Motor: Obeys Commands Verbal: Oriented GCS Score: 15 - Psych Psych: Normal mood, Normal affect PD ED PE EXPANDED - Cardiac Cardiac: Murmur Present (1/6 ANSELMO cardiac base (left 2nd ICS)) Results - Vitals Vitals: Vital Signs - 24 hr 03/05/21 03/05/21 03/06/21 21:47 21:50 04:17 Temperature 36.0 C L 36.5 C Heart Rate 93 93 72 Respiratory 18 18 14 Rate Blood Pressure 139/91 H 139/91 H 131/72 H O2 Saturation 100 100 97 Oxygen O2 Source Room air - Labs Labs: Laboratory Tests 03/05/21 03/05/21 03/05/21 22:17 22:58 22:58 WBC 10.7 RBC 4.31 Hgb 10.9 L Hct 34.7 L MCV 80.5 L MCH 25.3 L MCHC 31.4 L RDW 14.8 Plt Count 419 MPV 9.8 Neut # (Auto) 5.2 Lymph # (Auto) 4.2 H [place] # (Auto) 0.8 Eos # (Auto) 0.3 Baso # (Auto) 0.1 Absolute Nucleated RBC 0.00 Nucleated RBC % 0.0 PT INR APTT Sodium 137 Potassium 3.6 Chloride 103 Carbon Dioxide 23 Anion Gap 11.0 BUN 18 Creatinine 0.9 Estimated GFR (MDRD) 70 L Glucose 94 Calcium 9.0 Total Bilirubin 0.4 AST 14 ALT 14 Alkaline Phosphatase 83 Total Protein 6.4 L Albumin 3.9 Globulin 2.5 Albumin/Globulin Ratio 1.6 Lipase 27 TSH Urine Color YELLOW Urine Clarity CLEAR Urine pH 6.0 Ur Specific [place] >=1.030 H Urine Protein NEGATIVE Urine Glucose (UA) NEGATIVE Urine Ketones NEGATIVE Urine Occult Blood NEGATIVE Urine Nitrite NEGATIVE Urine Bilirubin NEGATIVE Urine Urobilinogen 0.2 (NORMAL) Ur Leukocyte Esterase SMALL H Urine RBC None Seen Urine WBC 4-5 Ur Squamous Epith Cells MOD Squamous H Urine Bacteria Rare Ur Microscopic Review INDICATED Urine Culture Comments NOT INDICATED Urine HCG, Qual NEGATIVE Salicylates < 6.0 Urine Opiates Screen NEGATIVE Ur Oxycodone Screen NEGATIVE Urine Methadone Screen NEGATIVE Ur Propoxyphene Screen NEGATIVE Acetaminophen 10 Ur Barbiturates Screen NEGATIVE Ur Tricyclics Screen NEGATIVE Ur Phencyclidine Scrn NEGATIVE Ur Amphetamine Screen NEGATIVE U Methamphetamines Scrn NEGATIVE U Benzodiazepines Scrn POSITIVE H Urine Cocaine Screen NEGATIVE U Cannabinoids Screen NEGATIVE Ethyl Alcohol < 5.0 03/05/21 03/05/21 22:58 22:58 WBC RBC Hgb Hct MCV MCH MCHC RDW Plt Count MPV Neut # (Auto) Lymph # (Auto) [place] # (Auto) Eos # (Auto) Baso # (Auto) Absolute Nucleated RBC Nucleated RBC % PT 12.6 INR 1.1 APTT 35.7 H Sodium Potassium Chloride Carbon Dioxide Anion Gap BUN Creatinine Estimated GFR (MDRD) Glucose Calcium Total Bilirubin AST ALT Alkaline Phosphatase Total Protein Albumin Globulin Albumin/Globulin Ratio Lipase TSH 2.63 Urine Color Urine Clarity Urine pH Ur Specific [place] Urine Protein Urine Glucose (UA) Urine Ketones Urine Occult Blood Urine Nitrite Urine Bilirubin Urine Urobilinogen Ur Leukocyte Esterase Urine RBC Urine WBC Ur Squamous Epith Cells Urine Bacteria Ur Microscopic Review Urine Culture Comments Urine HCG, Qual Salicylates Urine Opiates Screen Ur Oxycodone Screen Urine Methadone Screen Ur Propoxyphene Screen Acetaminophen Ur Barbiturates Screen Ur Tricyclics Screen Ur Phencyclidine Scrn Ur Amphetamine Screen U Methamphetamines Scrn U Benzodiazepines Scrn Urine Cocaine Screen U Cannabinoids Screen Ethyl Alcohol - Rads (name of study) CTH angio Radiology: Prelim report reviewed, See rad report CT neck angio Radiology: Prelim report reviewed, See rad report PD MEDICAL DECISION MAKING - ED course Complexity details: reviewed old records, reviewed results, re-evaluated patient, considered differential, d/w patient ED course: AAOx3 during ED stay. normal neurological exam and no concerning findings on blood tests nor CTA head/neck (incidental note made of thyroid nodules). results d/w patient and spouse (in ED at bedside). instructed to follow up with her primary care provider but return if worse in any way. Departure - Departure Disposition: 01 Home, Self Care Clinical Impression: Hallucinations Condition: Good Instructions: ED Confusion Follow-Up: NEERU HEAD DO [Primary Care Provider] - Discharge Date/Time: 03/06/21 04:29
[2021-03-05] MEDS ORDERED: IOVERSOL 320 100 ML VIAL IVP ONE ×2 (22:21→23:51)
[2021-03-05 22:27] LABS: MUDS CUTOFF CONCENTRATIONS CUTOFF CONC BELOW:
[2021-03-05 22:29] LABS: BILIRUBIN,URINE NEGATIVE (NEGATIVE); CLARITY,URINE CLEAR (CLEAR); GLUCOSE, URINE (UA) NEGATIVE (NEGATIVE); HCG UR QUAL NEGATIVE; KETONES,URINE (UA) NEGATIVE (NEGATIVE); LEUKOCYTE ESTERASE, URINE SMALL (NEGATIVE); NITRITE,URINE NEGATIVE (NEGATIVE); OCCULT BLOOD,URINE NEGATIVE (NEGATIVE); PROTEIN,URINE NEGATIVE (NEGATIVE); UROBILINOGEN,URINE 0.2 (NORMAL) E.U./dL (NORMAL)
[2021-03-05 22:37] LABS: BACTERIA,URINE Rare /HPF (None Seen); RBC,URINE None Seen /HPF (0-5); SQUAMOUS EPITHELIAL CELL,UR MOD Squamous (<= Few)
[2021-03-05 22:39] LABS: AMPHETAMINE SCREEN,URINE NEGATIVE (NEGATIVE); BARBITURATE SCREEN,UR NEGATIVE (NEGATIVE); BENZODIAZEPINES SCREEN, URINE POSITIVE (NEGATIVE); COCAINE SCREEN URINE NEGATIVE (NEGATIVE); METHADONE SCREEN, URINE NEGATIVE (NEGATIVE); METHAMPHETAMINES SCREEN, URINE NEGATIVE (NEGATIVE); OPIATE SCREEN, URINE NEGATIVE (NEGATIVE); OXYCODONE SCREEN, URINE NEGATIVE (NEGATIVE); PROPOXYPHENE SCREEN, URINE NEGATIVE (NEGATIVE); THC CANNABINOID SCREEN, URINE NEGATIVE (NEGATIVE); TRICYCLIC ANTIDEPRESSANT,URINE NEGATIVE (NEGATIVE)
[2021-03-05 23:04] LABS: BASOPHILS # (AUTO) 0.1 10^3/uL (0.0-0.1); BASOPHILS % (AUTO) 0.8 %; EOSINOPHILS # (AUTO) 0.3 10^3/uL (0.0-0.7); HCT - HEMATOCRIT 34.7 % (37.0-47.0); HGB - HEMOGLOBIN 10.9 g/dL (12.0-16.0); LYMPHOCYTES # (AUTO) 4.2 10^3/uL (1.5-3.5); LYMPHOCYTES % (AUTO) 39.7 %; MEAN CORPUSCULAR HEMOGLOBIN 25.3 pg (27.0-31.0); MEAN CORPUSCULAR HGB CONC 31.4 g/dL (32.0-36.0); MEAN CORPUSCULAR VOLUME 80.5 fL (81.0-99.0); MEAN PLATELET VOLUME 9.8 fL (7.9-10.8); MONOCYTES # (AUTO) 0.8 10^3/uL (0.0-1.0); MONOCYTES % (AUTO) 7.7 %; NEUTROPHILS # (AUTO) 5.2 10^3/uL (1.5-6.6); NEUTROPHILS % (AUTO) 48.6 %; PLT - PLATELET COUNT 419 10^3/uL (130-450); RED BLOOD COUNT 4.31 10^6/uL (4.20-5.40); RED CELL DISTRIBUTION WIDTH 14.8 % (12.0-15.0); WHITE BLOOD COUNT 10.7 x10^3/uL (4.8-10.8)
[2021-03-05 23:11] LABS: INR 1.1 (0.8-1.2); PT - PROTHROMBIN TIME 12.6 secs (9.9-12.6)
[2021-03-05 23:18] LABS: ACETAMINOPHEN 10 ug/mL (10-30); ALBUMIN 3.9 g/dL (3.2-5.5); ALBUMIN/GLOBULIN RATIO 1.6 (1.0-2.2); ALKALINE PHOSPHATASE 83 IU/L (42-121); ALT ALANINE AMINOTRANSFERASE 14 IU/L (10-60); AST ASPARTATE AMINOTRANSFERASE 14 IU/L (10-42); BILIRUBIN,TOTAL 0.4 mg/dL (0.2-1.0); BUN - BLOOD UREA NITROGEN 18 mg/dL (6-20); CARBON DIOXIDE - CO2 23 mmol/L (21-32); CHLORIDE 103 mmol/L (101-111); CREATININE 0.9 mg/dL (0.4-1.0); ETOH - ETHANOL < 5.0 mg/dL; GFR - MDRD 70 (>89); GLUCOSE 94 mg/dL (70-100); LIPASE 27 U/L (22-51); PARTIAL THROMBOPLASTIN TIME 35.7 secs (24.9-33.3); POTASSIUM 3.6 mmol/L (3.5-5.0); SALICYLATE < 6.0 mg/dL; SODIUM 137 mmol/L (135-145); TOTAL PROTEIN 6.4 g/dL (6.7-8.2)
[2021-03-06 04:28] VITALS: BP 131/72
--- NOTE | 2021-03-06 07:16 | CT Report ---
PROCEDURE: ANGIO HEAD W/WO INDICATIONS: Acute altered mental status. CONTRAST: IV CONTRAST: Optiray 320 ml: 80 PO CONTRAST: *NO PO CONTRAST TECHNIQUE: Precontrast 4.5 mm thick angled axial sections acquired from the foramen magnum to the vertex. Afte r the administration of intravenous contrast, 1 mm thick sections acquired through the [place] is. Postcontrast 4.5 mm thick sections then re-acquired from the foramen magnum to the vertex. 3-di mensional gltrfap-apsnbosqi-kwzrxnrwdj (MIP) and/or volume rendering reformats were acquired of the c entral intracranial vasculature. For radiation dose reduction, the following was used: automated ex posure control, adjustment of mA and/or kV according to patient size. COMPARISON: None FINDINGS: Image quality: Excellent. Anterior circulation: Intracranial internal carotid arteries are normal in size and flow. The flow within the paired anterior cerebral arteries is normal and symmetric. The flow within the middle cer ebral arteries is normal and symmetric. The anterior communicating artery is seen. No aneurysms are seen. Posterior circulation: Visualized portions of the vertebral arteries demonstrate normal caliber, and join to form a normal appearing basilar artery. Flow within the posterior cerebral arteries is norm al and symmetric. No aneurysms are seen. CSF spaces: Ventricles are normal in size and shape. Basal cisterns are patent. No extra-axial flu id collections. Brain: No midline shift. No intracranial bleeds or masses. [place]-white matter interface appears int act. Skull and face: Calvarium and facial bones appear intact, without suspicious lesions. Sinuses: Visualized sinuses and mastoids are clear. IMPRESSION: 1. No acute intracranial disease process. 2. No large vessel occlusion, hemodynamically significant vascular stenosis, vascular dissection or a neurysm. Reviewed by: Meliza Askew MD, PhD on 03/06/2021 7:15 AM PDT Approved by: Meliza Askew MD, PhD on 03/06/2021 7:15 AM PDT Station ID: [id number]
--- NOTE | 2021-03-06 07:24 | CT Report ---
PROCEDURE: ANGIO NECK W INDICATIONS: AMS CONTRAST: IV CONTRAST: Optiray 320 ml: 80 PO CONTRAST: *NO PO CONTRAST TECHNIQUE: After the administration of intravenous contrast, 1.5 mm axial sections acquired from the aortic arch to the [place]. Coronal 3-D maximum intensity projection (MIP) and/or volume rendering ref ormats were then performed. For radiation dose reduction, the following was used: automated exposur e control, adjustment of mA and/or kV according to patient size. COMPARISON: None. FINDINGS: Image quality: Excellent. Carotid system: The great vessels demonstrate a conventional anatomy as they arise from the aortic a rc. The origins of the common carotid arteries appear patent. The common carotid arteries demonstr ate normal calibers and courses. The bifurcation regions appear normal bilaterally. The internal ca rotid arteries demonstrate normal caliber and course. Posterior circulation: The origins of the vertebral arteries appear patent. The more superior porti ons of the vertebral arteries demonstrate normal course and caliber. They join to form a normal appe aring basilar artery. Soft tissues: Visualized neck soft tissues demonstrate no suspicious abnormalities. 2.4 cm nodule no darrion in the right lobe of thyroid gland. 1.1 cm nodule in the isthmus of the thyroid gland. Bones: No suspicious bony lesions. Visualized cervical spine appears normally aligned. IMPRESSION: 1. No large vessel occlusion, vascular stenosis, vascular dissection or aneurysm. 2. Thyroid nodules. Recommend thyroid ultrasound for definitive characterization. The estimate of stenosis included in the report of the imaging study was calculated using the NASCET method Reviewed by: Meliza Askew MD, PhD on 03/06/2021 7:23 AM PDT Approved by: Meliza Askew MD, PhD on 03/06/2021 7:23 AM PDT Station ID: [id number]
== END 2021-03-06 04:29 | disposition home or self-care (01) ==
LOC: ED 21:40
DX: R44.0 Auditory hallucinations (principal); E04.2 Nontoxic multinodular goiter; R01.1 Cardiac murmur, unspecified; D68.51 Activated protein C resistance; Z86.718 Personal history of other venous thrombosis and embolism; Z79.01 Long term (current) use of anticoagulants
CPT/HCPCS: 36415; 70496; 70498; 80053; 80306; 80307; 80320; 80329; 81001; 81025; 83690; 84443; 85025; 85610; 85730; 99284; Q9967; 81003; 87086